=== PATIENT | female | born 1940 | race Caucasian/White ===

== ENCOUNTER 2020-04-01 14:18 | Inpatient (IN) | payer MEDICARE, SELFPAY ==
[2020-04-01] VITALS (26 sets, daily range): BP systolic 182–227; BP diastolic 56–79; PULSE 87–101; RESP 12–23; TEMP 36.2–37; O2SAT 93–99; BMI 23.4
--- NOTE | ~2020-04-01 | XR_ITS ---
EXAMINATION: XR hip LT 2V w AP pelvis DATE: 04/01/2020 14:57 INDICATION: Left hip pain. Fall. TECHNIQUE: An anteroposterior view pelvis and 2 views of left hip were obtained. COMPARISON: None. FINDINGS: Bone alignment is normal. There is a subcapital fracture of left femoral neck in near-anato chuy alignment. There is enlargement of the femoral necks, and there is an exostosis of medial aspect of subtrochanteric region of right femur. 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 Th ere is mild osteoarthritis of right hip. There is mild lumbar spondylosis. A calcification overlying the pelvis is likely a uterine fibroid. IMPRESSION: 1. Subcapital fracture of left femoral neck. 2. Mild right hip osteoarthritis. 3. Multiple hereditary exostoses. Reviewed, dictated and finalized at location B.
--- NOTE | ~2020-04-01 | XR_ITS ---
XR surgery orthopedic 04/02/2020 10:27 Indication: Left hip pinning Procedure: 2 fluoroscopic views of the left hip. 35 seconds of fluoroscopy. Comparison: Left hip series dated 04/01/2020 Findings: There are 3 orthopedic screws transfixing the left femoral neck. There is enlargement of th e femoral neck. Mild osteoarthritis. Left femoral subcapital fracture in anatomic alignment. Impression: 1: Status post internal fixation of left femoral subcapital fracture with 3 orthopedic screws. Reviewed, dictated and finalized at location A. Impression: 1: Status post internal fixation of left femoral subcapital fracture with 3 ort hopedic screws.
--- NOTE | ~2020-04-01 | CT_ITS ---
EXAMINATION: CT brain [facility] EXAM DATE: 04/01/2020 14:46 INDICATION: Fall, head injury. TECHNIQUE: Spiral CT of the head was performed without contrast. Axial, coronal and sagittal images were reviewed. The dose-length product (DLP) for this examination was 605.33 mGy-cm. The exposure w as tailored according to patient size, and iterative reconstruction (ASIR) was used as additional dos e reduction technique. There is no prior study for comparison. FINDINGS: There is no acute intraparenchymal hemorrhage. No evidence of intraparenchymal brain mass lesion. No evidence of acute infarction. Please note that initial head CT has limited sensitivity f or small or acute infarctions. There is mild periventricular and subcortical hypodensity, nonspecific but probably related to small vessel ischemic disease. There is moderate prominence of the sulci a nd ventricles related to cerebral atrophy. There is intracranial carotid arteriosclerosis. There a re no extra-axial collections. There is no mass effect or midline shift. Patient has had bilateral ocular lens surgery. Soft tissue is unremarkable. The visualized sinuses and mastoid air cells are well aerated. IMPRESSION: 1. No acute intracranial findings. 2. Chronic age related findings. Reviewed, dictated and finalized at location G.
--- NOTE | 2020-04-01 14:27 | ECG_ITS ---
Measurements Intervals [place] Rate: 94 P: 45 [place]: 178 QRS: -19 QRSD: 71 T: 58 QT: 359 QTc: 451 Interpretive Statements SINUS RHYTHM POSSIBLE LEFT ATRIAL ENLARGEMENT CANNOT RULE OUT SEPTAL INFARCT, AGE INDETERMINATE BORDERLINE ST ABNORMALITY- HIGH LATERAL LEADS ABNORMAL ECG Electronically Signed On 04-01-2020 17:24:36 CDT by Davidson Collazo D.O.
[2020-04-01 14:45] LABS: Basophils Percent Auto 0.4 % (0.2-1.2); Eosinophils Absolute Auto 0.1 K/mm3 (0-0.3); Eosinophils Percent Auto 1.8 % (0-4.4); Hematocrit 31.3 % (37.0-47.0); Hemoglobin 10.2 g/dL (12.0-15.0); Immature Granulocyte Absolute 0.02 K/mm3 (0.00-0.031); Immature Granulocyte Percent A 0.4 % (0-0.5); Lymphocytes Absolute Auto 0.92 K/mm3 (0.9-3.2); Lymphocytes Percent Auto 18.7 % (18.3-44.2); Mean Corpuscular HGB Conc 32.6 g/dl (32-36); Mean Corpuscular Hemoglobin 29.7 pg (26-34); Mean Platelet Volume 11.9 fl (7.4-10.4); Monocytes Absolute Auto 0.3 K/mm3 (0.1-0.6); Monocytes Percent Auto 6.5 % (2.6-8.5); Neutrophils Absolute Auto 3.6 K/mm3 (1.3-6.7); Neutrophils Percent Auto 72.2 % (45.5-73.1); Platelet Count Result 86 k/mm3 (150-375); Red Blood Count 3.44 M/mm3 (4.2-5.4); Red Cell Distribution Width 14.6 % (11.5-14.5); White Blood Count 4.9 K/mm3 (4.5-10.0)
[2020-04-01 14:56] LABS: Alanine Aminotransferase 27 U/L (4-35); Albumin Level 2.9 g/dL (3.5-5.1); Alkaline Phosphatase 125 U/L (38-126); Anion Gap 5 mmol/L (8-16); Aspartate Amino Transferase 52 U/L (14-36); Bilirubin,Total 0.5 mg/dL (0.2-1.3); Blood Urea Nitrogen 26 mg/dL (7-17); Calcium 8.5 mg/dL (8.4-10.2); Carbon Dioxide 24 mmol/L (22-30); Chloride 111 mmol/L (98-107); Estimated CRCL calculation 30 ml/min; Estimated Glomerular Filt Rate 48; Glucose 324 mg/dL (65-105); Potassium 4.2 mmol/L (3.4-5.0); Sodium 140 mmol/L (137-145)
[2020-04-01 14:57] LABS: INR 1.1; Prothrombin Time 13.6 Seconds (11.1-14.7)
--- NOTE | 2020-04-01 15:28 | ED.FALL ---
HPI - Fall General Chief Complaint: Fall Stated Complaint: fall - left leg/hip pain Time Seen by Provider: 04/01/20 14:27 Source: patient and EMS Mode of arrival: EMS Limitations: no limitations History of Present Illness HPI Narrative: 79-year-old with a history of hypertension, hyperlipidemia, diabetes was brought in from home with complaints of fall. Patient states that she was helping her son and moving, lost her balance and fell on her left hip. She also states that she might have hit her head but no loss of consciousness. She denies any chest pain or shortness of breath. Patient states that she is unable to bear weight on her left leg. MD complaint: fall Onset (ago): minute(s) (30) Fall from: standing Fall witnessed: yes, by family Place fall occurred: home Loss of consciousness: none Symptoms prior to fall: none Context: other (Lost her balance) Severity: severe Severity scale (1-10): 8 Quality: aching Associated symptoms (after fall): denies Related Data Home Medications Medication Instructions Recorded Confirmed amlodipine 2.5 mg PO DAILY 04/01/20 aspirin 81 mg PO DAILY 04/01/20 atorvastatin 10 mg PO DAILY 04/01/20 bacitracin 04/01/20 carboxymethylcellulose sodium drp 04/01/20 04/01/20 [Retaine CMC] diazepam 2 mg PO BID PRN 04/01/20 ergocalciferol (vitamin D2) 04/01/20 fluticasone propionate INHALATION 04/01/20 furosemide 20 mg BYMOUTH 04/01/20 gabapentin 300 mg PO BID 04/01/20 insulin detemir U-100 [Levemir unit SUBCUT 04/01/20 FlexTouch U-100 Insuln] losartan 50 mg PO DAILY 04/01/20 meclizine 25 mg PO BID PRN 04/01/20 metformin 850 mg PO TID 04/01/20 prochlorperazine maleate 04/01/20 sulfamethoxazole-trimethoprim 1 tablet PO Q12H 04/01/20 Allergies Allergy/AdvReac Type Severity Reaction Status Date / Time Penicillins Allergy Rash Verified 04/01/20 14:23 red dye Allergy Rash Verified 04/01/20 14:23 Review of Systems Review of Systems: All systems reviewed & are unremarkable except as noted in HPI and below Constitutional: Constitutional: Reports no additional constitutional complaints Eyes: Eyes: Reports no additional eye complaints ENT: Reports as per HPI Cardiovascular: Cardiovascular: Reports no additional cardiovascular complaints Respiratory: Respiratory: Reports no additional respiratory complaints Musculoskeletal: Musculoskeletal: Reports as per HPI Neurologic: Reports system reviewed and no additional complaints, except as documented Endocrine: Endocrine: Reports no additional endocrine complaints [facility] Social History Social History Gender identity (if verbalized by the patient): Female Exam Narrative: Exam Narrative: GENERAL: Well-appearing, thin and in no acute distress. HEAD: Normocephalic, atraumatic. EYES: PERRLA and EOMI. ENT: Nares clear. Mucous membranes moist. NECK: Supple. CHEST: Clear to auscultation. No respiratory distress. HEART: Regular rate and rhythm. No murmur heard. Normal peripheral pulses. ABDOMEN: Soft, nontender, nondistended, normal active bowel sounds. EXTREMITIES: pain and tenderness in the left hip SKIN: Warm, dry, no rash. NEURO: No focal deficits. Alert and oriented x3. PSYCH: Normal mood and affect. Course Course Emergency Course: Inform patient and the family about her lab work, x-ray findings. I discussed her case with Dr. rodriguez agreed to consult the patient recommended to admit to the hospitalist. Vital Signs Vital signs: Vital Signs Pulse Rate 95 04/01/20 14:25 Respiratory Rate 19 04/01/20 14:25 Blood Pressure 204/61 H 04/01/20 14:25 Pulse Oximetry 96 04/01/20 14:25 Pulse Rate 101 H 04/01/20 15:00 Respiratory Rate 18 04/01/20 15:00 Blood Pressure 208/65 H 04/01/20 14:31 Pulse Oximetry 96 04/01/20 15:00 MDM - Fall Lab Data Result diagrams: 04/01/20 14:39 04/01/20 14:39 Labs: Lab Results
[2020-04-01] MEDS: HYDROmorphone HCL INJ (*CRX) 1 MG/ML SYR 0.5 MG IV PUSH (16:05)
--- NOTE | 2020-04-01 16:10 | PC.NURSE ---
Patient refusing rivera catheter at this time.
[2020-04-01] MEDS: ONDANSETRON INJ 4 MG/2 ML VIAL IV PUSH ×2 (16:14→22:39)
[2020-04-01] MEDS: SODIUM CHLORIDE 0.9% IV 1,000 ML 75 ML IV CONT (16:15)
--- NOTE | 2020-04-01 16:31 | PM.IMHP ---
H&P: HPI History of Present Illness Date/Time: 04/01/20 16:31 Chief complaint: left hip fracture Narrative: Gail Matute is a 79 year old female Past medical history hyperlipidemia, type 2 diabetes, hypertension, from pulmonary fibrosis diagnosis 1990, who presents to ED with left hip pain. she was working on home improvement with her and tripped over something. She did not have any dizziness, syncope, loss of consciousness, vision changes prior to the fall. She has no history of falls. for diabetes she is on insulin q.i.d.. She states she has been on and off prednisone for her pulmonary fibrosis, no recent prednisone use. She denies fever, chills, nausea, vomiting, diarrhea, syncope, lightheadedness, dizziness. In the ED: Patient was found to have a closed left hip fracture. Patient admitted for left hip fracture, plan for surgery tomorrow morning at 8:30 a.m. Patient admits to medical floor For further management. Review of Systems Review of Systems: Narrative: Constitutional: No Fever, No Chills, No Night Sweats, No Fatigue, No Malaise ENT/Mouth: No Hearing Changes, No Ear Pain, No Nasal Congestion, No Sinus Pain, No Hoarseness, No sore throat, No Rhinorrhea, No Swallowing Difficulty Eyes: No Eye Pain, No Redness, No Vision Changes Cardiovascular: No Chest Pain, No Palpitations, No Dyspnea on Exertion, No Orthopnea, No Claudication, No Edema Respiratory: No Cough, No Sputum, No Wheezing, No Shortness of Breath Gastrointestinal: No Nausea, No Vomiting, No Diarrhea, No Constipation, No Abdominal Pain, No Heartburn, No Hematochezia, No Melena Genitourinary: No Dysuria, No Urinary Frequency, No Hematuria, No Urinary Incontinence, No Urgency Musculoskeletal: No Arthralgias, No Myalgias, endorses left hip pain Skin: No Skin Lesions, No Pruritis, No Hair Changes Neuro: No Weakness, No Numbness, No Paresthesias, No Loss of Consciousness, No Syncope, No Dizziness, No Headache Psych: No Anxiety/Panic, No Depression, No Insomnia Heme: No Bruising, No Bleeding Lymph: No Adenopathy Endocrine: No Polyuria, No Polydipsia, No Temperature Intolerance [facility], [facility] Past Medical History Medical History (Updated 04/01/20 @ 18:47 by Farhana Rudd DO) Closed hip fracture COPD (chronic obstructive pulmonary disease) Diabetes mellitus Hyperlipidemia Hypertension Normal colonoscopy 06/2019 Pulmonary fibrosis diagnosed 1990 Surgical History Surgical History (Updated 04/01/20 @ 18:47 by Farhana Rudd DO) History of lung biopsy Family History Family History (Updated 04/01/20 @ 18:47 by Farhana Rudd DO) Father , from old age, gangrene surgery complication No problems noted. Mother , lymph cancer No problems noted. Social History Social History (Updated 04/01/20 @ 18:48 by Farhana Rudd DO) Social History: Very active, still drives, independent Smoking status: Never smoker Alcohol intake: never Substance use: never Additional living arrangements comments: Lives with Gender identity (if verbalized by the patient): Female Spiritual care concerns: No Meds Home Medications and Allergies Home Medications Medication Instructions Recorded Confirmed Type amlodipine 2.5 mg PO DAILY 04/01/20 History aspirin 81 mg PO DAILY 04/01/20 History atorvastatin 10 mg PO DAILY 04/01/20 History bacitracin 04/01/20 History carboxymethylcellulose sodium drp 04/01/20 04/01/20 History [Retaine CMC] diazepam 2 mg PO BID PRN 04/01/20 History ergocalciferol (vitamin D2) 04/01/20 History fluticasone propionate INHALATION 04/01/20 History furosemide 20 mg BYMOUTH 04/01/20 History gabapentin 300 mg PO BID 04/01/20 History insulin detemir U-100 [Levemir unit SUBCUT 04/01/20 History FlexTouch U-100 Insuln] losartan 50 mg PO DAILY 04/01/20 History meclizine 25 mg PO BID PRN 04/01/20 History metformin 850 mg PO TID 04/01/20 Hi
--- NOTE | 2020-04-01 16:51 | WPDANESEPP ---
Anes - Eval Pre Procedure Procedure: Operation Date: 04/02/20 08:30 Proposed Procedures p Left Hip Pinning(Left) - Timmy Garcia MD Date/Time: 04/01/20 16:51 Pre Op Diagnosis: left hip fracture Patient Data Age: 79 Gender: F Height: 5 ft 2 in Weight: 54.5 kg Last Vital Signs Temp 98.0 F 04/01/20 15:52 Pulse 93 04/01/20 16:30 Resp 19 04/01/20 16:30 BP 219/63 H 04/01/20 16:16 Pulse Ox 94 04/01/20 16:30 Allergies Allergy/AdvReac Type Severity Reaction Status Date / Time Penicillins Allergy Rash Verified 04/01/20 14:23 red dye Allergy Rash Verified 04/01/20 14:23 Home Medications Medication Instructions Recorded Confirmed Type amlodipine 2.5 mg PO DAILY 04/01/20 History aspirin 81 mg PO DAILY 04/01/20 History atorvastatin 10 mg PO DAILY 04/01/20 History bacitracin 04/01/20 History carboxymethylcellulose sodium drp 04/01/20 04/01/20 History [Retaine CMC] diazepam 2 mg PO BID PRN 04/01/20 History ergocalciferol (vitamin D2) 04/01/20 History fluticasone propionate INHALATION 04/01/20 History furosemide 20 mg BYMOUTH 04/01/20 History gabapentin 300 mg PO BID 04/01/20 History insulin detemir U-100 [Levemir unit SUBCUT 04/01/20 History FlexTouch U-100 Insuln] losartan 50 mg PO DAILY 04/01/20 History meclizine 25 mg PO BID PRN 04/01/20 History metformin 850 mg PO TID 04/01/20 History prochlorperazine maleate 04/01/20 History sulfamethoxazole-trimethoprim 1 tablet PO Q12H 04/01/20 History Laboratory Tests 04/01/20 04/01/20 04/01/20 14:39 14:39 14:39 WBC 4.9 K/mm3 K/mm3 (4.5-10.0) RBC 3.44 M/mm3 L M/mm3 (4.2-5.4) Hgb 10.2 g/dL L g/dL (12.0-15.0) Hct 31.3 % L % (37.0-47.0) MCV 91.0 fl fl (80-100) MCH 29.7 pg pg (26-34) MCHC 32.6 g/dl g/dl (32-36) RDW 14.6 % H % (11.5-14.5) Plt Count 86 k/mm3 L k/mm3 (150-375) MPV 11.9 fl H fl (7.4-10.4) Immature Gran % (Auto) 0.4 % % (0-0.5) Neut % (Auto) 72.2 % % (45.5-73.1) Lymph % (Auto) 18.7 % % (18.3-44.2) Lucas % (Auto) 6.5 % % (2.6-8.5) Eos % (Auto) 1.8 % % (0-4.4) Baso % (Auto) 0.4 % % (0.2-1.2) Lymph # (Auto) 0.92 K/mm3 K/mm3 (0.9-3.2) Lucas # (Auto) 0.3 K/mm3 K/mm3 (0.1-0.6) Eos # (Auto) 0.1 K/mm3 K/mm3 (0-0.3) Baso # (Auto) 0.0 K/mm3 K/mm3 (0.0-0.1) Abs Immat Gran (auto) 0.02 K/mm3 K/mm3 (0.00-0.031) Absolute Neuts (auto) 3.6 K/mm3 K/mm3 (1.3-6.7) Absolute Nucleated RBC 0.0 K/mm3 K/mm3 (0.0-0.012) Nucleated RBC % 0.0 % % (0.0-0.2) PT 13.6 Seconds Seconds (11.1-14.7) INR 1.1 Sodium 140 mmol/L mmol/L (137-145) Potassium 4.2 mmol/L mmol/L (3.4-5.0) Chloride 111 mmol/L H mmol/L (98-107) Carbon Dioxide 24 mmol/L mmol/L (22-30) Anion Gap 5 mmol/L L mmol/L (8-16) BUN 26 mg/dL H mg/dL (7-17) Creatinine 1.10 mg/dL H mg/dL (0.7-1.0) Estim Creat Clear Calc 30 ml/min ml/min Estimated GFR 48 L (59 - ) Glucose 324 mg/dL H mg/dL (65-105) Calcium 8.5 mg/dL mg/dL (8.4-10.2) Total Bilirubin 0.5 mg/dL mg/dL (0.2-1.3) AST 52 U/L H U/L (14-36) ALT 27 U/L U/L (4-35) Alkaline Phosphatase 125 U/L U/L (38-126) Total Protein 6.0 g/dL L g/dL (6.3-8.2) Albumin 2.9 g/dL L g/dL (3.5-5.1) Patient hx anesthesia problems: none Family hx anesthesia problems: none [facility] Past Medical History Medical History (Updated 04/01/20 @ 16:52 by Dom Mcgregor, SANTINO) Closed hip fracture COPD (chronic obstructive pulmonary disease) Diabetes mellitus Hyperlipidemia Hypertension Social History Social History (Reviewed 04/01/20 @ 16:54 by Dom Diamond
[2020-04-01] MEDS: HYDROcodone/acetaminophen (*CRX) 5-325 MG TABLET 1 TAB PO ×2 (18:10→22:39)
--- NOTE | 2020-04-01 18:18 | ADMGEN ---
This patient, Gail Matute, was admitted to 2 Medical Room 243-. Patient/family oriented to hospital policies and general routines including ID bracelet, bed and alarms, visiting hours, pain management, procedures, bathroom and other care routines, personal items, smoking policy, room service/diet, and visiting hours. Valuables list has been completed. Information on how to activate the Rapid Response Team has been discussed. Patient/Family are encouraged to report perceived risks to care and to ask questions if they do not understand what they are told or what they should do.
[2020-04-01 18:26] LABS: Magnesium 1.8 mg/dL (1.6-2.3)
[2020-04-01 18:32] LABS: Glucose Point of Care 246 (65-105)
[2020-04-01] MEDS: INSULIN ASPART (*BKC) 100 UNITS/ML SUB-Q (18:33)
[2020-04-01] MEDS: HYDROmorphone HCL INJ (*CRX) 1 MG/ML SYR IV PUSH (21:00)
[2020-04-01 23:16] LABS: Glucose Point of Care 269 (65-105)
[2020-04-02] VITALS (16 sets, daily range): BP systolic 138–197; BP diastolic 45–71; PULSE 85–100; RESP 12–22; TEMP 36.8–38.1; O2SAT 92–100
[2020-04-02 06:02] LABS: Basophils Percent Auto 0.2 % (0.2-1.2); Eosinophils Absolute Auto 0.2 K/mm3 (0-0.3); Eosinophils Percent Auto 2.6 % (0-4.4); Hematocrit 32.3 % (37.0-47.0); Hemoglobin 10.4 g/dL (12.0-15.0); Immature Granulocyte Absolute 0.01 K/mm3 (0.00-0.031); Immature Granulocyte Percent A 0.2 % (0-0.5); Lymphocytes Absolute Auto 1.48 K/mm3 (0.9-3.2); Lymphocytes Percent Auto 25.3 % (18.3-44.2); Mean Corpuscular HGB Conc 32.2 g/dl (32-36); Mean Corpuscular Hemoglobin 29.9 pg (26-34); Mean Corpuscular Volume 92.8 fl (80-100); Mean Platelet Volume 12.5 fl (7.4-10.4); Monocytes Absolute Auto 0.5 K/mm3 (0.1-0.6); Monocytes Percent Auto 8.9 % (2.6-8.5); Neutrophils Absolute Auto 3.7 K/mm3 (1.3-6.7); Neutrophils Percent Auto 62.8 % (45.5-73.1); Platelet Count Result 99 k/mm3 (150-375); Red Blood Count 3.48 M/mm3 (4.2-5.4); Red Cell Distribution Width 14.7 % (11.5-14.5); White Blood Count 5.9 K/mm3 (4.5-10.0)
[2020-04-02 06:07] LABS: Glucose Point of Care 200 (65-105)
[2020-04-02] MEDS: hydrALAZINE HCL 20 MG/ML VIAL 10 MG IV PUSH (06:10)
[2020-04-02 06:26] LABS: Anion Gap 4 mmol/L (8-16); Blood Urea Nitrogen 28 mg/dL (7-17); Calcium 8.5 mg/dL (8.4-10.2); Carbon Dioxide 25 mmol/L (22-30); Chloride 108 mmol/L (98-107); Estimated CRCL calculation 30 ml/min; Estimated Glomerular Filt Rate 48; Glucose 217 mg/dL (65-105); Sodium 137 mmol/L (137-145)
[2020-04-02 06:27] LABS: Transferrin 226 mg/dL (206-381)
--- NOTE | 2020-04-02 07:44 | PM.CNOR ---
Assessment and Plan Assessment and plan (1) Closed hip fracture: Qualifiers: Encounter type: initial encounter Laterality: left Qualified Code(s): S72.002A - Fracture of unspecified part of neck of left femur, initial encounter for closed fracture Code(s): S72.009A - Fracture of unspecified part of neck of unspecified femur, initial encounter for closed fracture Status: Acute Assessment and Plan: 79-year-old female with an acute left femoral neck fracture. This is in the setting of an abnormal proximal femoral neck secondary to multiple hereditary exostoses. I discussed with her the role of surgical stabilization.Risks and potential complications were discussed in detail and questions answered. Plan on proceeding today. I would anticipate short stay in the acute rehab unit before being discharged home possibly with home health nursing and physical therapy. Thank you for the consultation. History of Present Illness HPI Consult date: 04/02/20 Consult reason: fracture Chief complaint: left hip fracture Narrative: 79-year-old female who fell yesterday landing on her left side suffering a left femoral neck fracture. No other injuries with this occurrence. She recalled all events surrounding this there was no loss of consciousness. No chest pain associated with this. Known history of multiple hereditary exostoses diagnosed about 35 years ago. Review of Systems Constitutional: Constitutional: Reports no additional constitutional complaints, Denies excessive sweating and Denies fatigue Eyes: Eyes: Reports no additional eye complaints ENT: Reports system reviewed and no additional complaints, except as documented Cardiovascular: Cardiovascular: Denies chest pain at rest and Denies dyspnea Respiratory: Respiratory: Reports no additional respiratory complaints and Denies dyspnea Gastrointestinal: Gastrointestinal: Reports no additional gastrointestinal complaints Musculoskeletal: Musculoskeletal: Reports as per HPI Neurologic: Reports as per HPI Hematologic/Lymphatic: Hematologic/Lymphatic: Denies easy bleeding and Denies easy bruising PMFSH Past Medical History Medical History (Updated 04/02/20 @ 07:46 by Timmy Garcia MD) COPD (chronic obstructive pulmonary disease) Diabetes mellitus Hyperlipidemia Hypertension Multiple hereditary exostoses Normal colonoscopy 06/2019 Pulmonary fibrosis diagnosed 1990 Surgical History Surgical History (Updated 04/02/20 @ 07:46 by Timmy Garcia MD) Closed hip fracture History of lung biopsy Family History Family History Father , from old age, gangrene surgery complication No problems noted. Mother , lymph cancer No problems noted. Social History Social History Social History: Very active, still drives, independent Smoking status: Never smoker Alcohol intake: never Substance use: never Additional living arrangements comments: Lives with Gender identity (if verbalized by the patient): Female Spiritual care concerns: No Meds Home Medications and Allergies Home Medications Medication Instructions Recorded Confirmed Type amlodipine 2.5 mg PO HS 04/01/20 04/01/20 History aspirin 81 mg PO DAILY 04/01/20 04/01/20 History atorvastatin 10 mg PO HS 04/01/20 04/01/20 History bacitracin 04/01/20 History carboxymethylcellulose sodium drp 04/01/20 04/01/20 History [Retaine CMC] diazepam 2 mg PO BID PRN 04/01/20 04/01/20 History ergocalciferol (vitamin D2) 50,000 unit PO MONTHLY 04/01/20 04/01/20 History fluticasone propionate 250 mcg INHALATION BID 04/01/20 04/01/20 History furosemide 20 mg PO DAILY 04/01/20 04/01/20 History gabapentin 300 mg PO BID 04/01/20 04/01/20 History insulin detemir U-100 [Levemir 10 unit SUBCUT HS 04/01/20 04/01/20 History FlexTouch U-100 In
--- NOTE | 2020-04-02 08:58 | PM.IMPN ---
Progress Note: A&P Assessment and Plan (1) Closed hip fracture: Qualifiers: Encounter type: subsequent encounter Laterality: left Fracture healing: with routine healing Qualified Code(s): S72.002D - Fracture of unspecified part of neck of left femur, subsequent encounter for closed fracture with routine healing Code(s): S72.009A - Fracture of unspecified part of neck of unspecified femur, initial encounter for closed fracture Status: Acute Assessment and Plan: medically stable for left hip ORIF today (2) Pulmonary fibrosis: Code(s): J84.10 - Pulmonary fibrosis, unspecified Status: Inactive Assessment and Plan: by history she has been doing well for several years her lack of progression renders the diagnosis dubious monitor per postoperatively for respiratory issues and encourage incentive spirometry and early mobilization of possible (3) Hypertension: Qualifiers: Hypertension type: essential hypertension Qualified Code(s): I10 - Essential (primary) hypertension Code(s): I10 - Essential (primary) hypertension Status: Acute Assessment and Plan: with the exception of furosemide, continue home regimen and monitor perioperatively (4) Diabetes mellitus: Qualifiers: Diabetes mellitus type: type 2 Diabetes mellitus nursing home insulin use: with nursing home use Diabetes mellitus complication status: with kidney complications Chronic kidney disease stage: stage 3 (moderate) Diabetes mellitus complication detail: with chronic kidney disease Chronic kidney disease stage 3 subtype: stage 3a (GFR 45-59) Qualified Code(s): E11.21 - Type 2 diabetes mellitus with diabetic nephropathy; N18.31 - Chronic kidney disease, stage 3a; Z79.4 - assisted (current) use of insulin Code(s): E11.9 - Type 2 diabetes mellitus without complications Status: Acute Assessment and Plan: hold metformin perioperative sliding scale aspartate insulin resume basal insulin when diet tolerated (5) Anemia due to acute blood loss: Code(s): D62 - Acute posthemorrhagic anemia Status: Acute Assessment and Plan: due to acute left hip fracture monitor hemoglobin hematocrit postoperatively Subjective Date/time seen: 04/02/20 08:58 Interval history: 04/02. Hospitalized 04/01 after fall at home of son and unable to walk. was told she had a fracture right hip and needed surgery 04/02. Quite uncomfortable through the night as she refused to receive any analgesics. History of pulmonary fibrosis. On and off prednisone several years. None for several months. Took vitamin-D in the past but unaware of any other preventive medication for osteoporosis. Does not recall bone density evaluation. Denied chest pain. Denied shortness of breath at rest. Chronic dyspnea on exertion stable. Denied edema. No palpitations syncope presyncope abdominal pain GI or complaints or abnormal bleeding. No weakness or numbness. No head trauma. Review of Systems Review of Systems: All systems reviewed & are unremarkable except as noted in HPI and below Exam Narrative: Exam Narrative: HEENT: EOMI, PERRL, sclerae nonicteric, pharyngeal mucosa pink and intact NECK: No JVD, adenopathy, or thyromegaly CHEST: Bilateral lower lobe fine crackles. Normal effort. HEART: NL S1/S2, regular, no murmur ABDOMEN: BS+, soft, nontender, no mass, no bruits EXTREMITIES: No cyanosis, edema, or clubbing NEUROLOGIC: CN intact and symmetric to inspection. MUSCULOSKELETAL: Tone and strength symmetric to dorsiflexion plantar flexion and supplies packer PSYCH: Alert. Oriented to person, place, and time. Objective Data Vital Signs Vital Signs: Vital Signs - 24 hr 04/01/20 14:25 04/01/20 14:30 04/01/20 14:31 Temperature Pulse Rate 95 96 94 Respiratory Rate 19 17 15 Blood Pressure 204/61 H 208/65 H Pulse Oximetry 96 96 95 04/01/20 14:32 04/01/20 14:
--- NOTE | 2020-04-02 09:00 | PC.NURSE ---
To OR per hospital bed, IV intact and locked. Report given to EVERT Villarreal.
--- NOTE | 2020-04-02 09:08 | WPDANESEFPP ---
Anes - Eval Final PreProcedure Day of Procedure 04/02/20 09:08 Patient weight: normal Heart: regular rate and rhythm and murmur Lungs: clear to auscultation and normal air movement Airway: Mallampati scale class II Neurological: alert and oriented Last oral intake: >/= 8 hours ASA classification: III Emergent: no Anesthetic plan: proceed Anesthesia type and monitoring: general LMA and standard monitoring Other findings: Informed Consent: The patient's anesthetic plan and its attendant risks and benefits were discussed with the patient/family/POA. Questions were solicited and answers provided to the satisfaction of the patient/family/POA.
[2020-04-02] MEDS: CLINDAMYCIN 600 MG in DEXTROSE 5% IN WATER 50 ML 100 MG IVPB (09:38)
[2020-04-02] MEDS: BUPIVACAINE/EPINEPHRINE 0.25% 50 ML VIAL 20 ML INFILTRATE (10:16)
[2020-04-02] MEDS: LACTATED RINGERS 1,000 ML 30 ML IV CONT (10:35)
--- NOTE | 2020-04-02 10:46 | P.OP_ITS ---
Procedure Note - Detailed Date of procedure: 04/02/20 Pre-op diagnosis: left hip fracture Post-op diagnosis: same Procedure performed: Left hip pinning in situ Description of procedure: The patient was identified and proper site identified. She was taken to the operating room after general anesthetic administration and intubation, she was transferred over to the fracture table position her supine in the usual manner for a left hip procedure. The position of the fracture was assessed fluoroscopically and noted to be in excellent position. The left hip and thigh was prepped and draped in the usual sterile fashion. 10 cc of 0.25% Marcaine and epinephrine solution was injected into the subcutaneous tissue in the area of the incision at the start of the procedure and additional 10 at the end. A short incision was made and subcutaneous tissue sharply dissected down to the ITB band which was divided in line with the incision. Using a targeting device three cannulated screws were placed under fluoroscopic control into the femoral neck and head verifying their positions fluoroscopically. 36.5 cannulated screws were placed over these pins and then the pins removed. Overall position of the hardware was assessed fluoroscopically on the AP and lateral views and noted to be satisfactory. The wound was irrigated with sterile antibiotic solution. The deep fascia was reapproximated with 0 Vicryl suture as was the deeper layers of the subcu. Skin edges reapproximated with three 0 Monocryl and jenny. Sterile dressing was applied. She tolerated procedure well, was awakened, extubated , transferred to the OR table and then taken recovery area in stable condition. she received perioperative antibiotics. Estimated blood loss was negligible. Anesthesia: GLMA Surgeon: Timmy Garcia MD Cook Helper Meat: Raven Estimated blood loss (mL): 10 Drains: No Packing: No Pathology: none sent Complications: No immediate complications Condition: stable Disposition: PACU
[2020-04-02 10:48] LABS: Glucose Point of Care 140 (65-105)
[2020-04-02] MEDS: fentaNYL CITRATE INJ (*CRX) 100 MCG/2 ML VIAL 25 MCG IV PUSH ×2 (10:54→11:08)
[2020-04-02 10:55] LABS: Iron 110 ug/dL (37-170)
[2020-04-02] MEDS: LABETALOL HCL INJ 100 MG/20 ML VIAL IV PUSH (11:03)
[2020-04-02 11:10] LABS: Percent Iron Saturation 31 % (20-50)
--- NOTE | 2020-04-02 11:50 | PC.NURSE ---
Returned from OR per hospital bed. Report received from EVERT Villarreal.
[2020-04-02] MEDS: SODIUM CHLORIDE 0.9% IV 1,000 ML 125 ML IV CONT (12:20)
[2020-04-02 12:33] LABS: Glucose Point of Care 170 (65-105)
[2020-04-02] MEDS: CLINDAMYCIN 600 MG/NS 50 ML 600 MG/50 ML PIGGYBACK 100 MG IVPB ×2 (13:23→21:19)
[2020-04-02] MEDS: ACETAMINOPHEN 500 MG TABLET 1000 MG BY MOUTH ×2 (13:23→21:19)
[2020-04-02] MEDS: oxyCODONE HCL (*CRX) 2.5 MG TAB IR PO ×2 (14:54→20:14)
[2020-04-02 17:13] LABS: Glucose Point of Care 228 (65-105)
[2020-04-02] MEDS: INSULIN ASPART (*BKC) 100 UNITS/ML SUB-Q (17:52)
[2020-04-02] MEDS: ASPIRIN 325 MG ENTERIC TABLET PO (20:14)
[2020-04-02 21:27] LABS: Glucose Point of Care 284 (65-105)
[2020-04-03 02:00] VITALS: BP 169/50; PULSE 100; RESP 20; TEMP 36.7; O2SAT 92
[2020-04-03] MEDS: oxyCODONE HCL (*CRX) 2.5 MG TAB IR PO ×3 (02:48→14:04)
[2020-04-03] MEDS: ACETAMINOPHEN 500 MG TABLET 1000 MG BY MOUTH ×3 (05:44→22:09)
[2020-04-03 06:00] VITALS: BP 151/51; PULSE 97; RESP 18; TEMP 36.7; O2SAT 92
[2020-04-03 06:34] LABS: Basophils Percent Auto 0.2 % (0.2-1.2); Eosinophils Absolute Auto 0.2 K/mm3 (0-0.3); Eosinophils Percent Auto 3.4 % (0-4.4); Hematocrit 28.3 % (37.0-47.0); Hemoglobin 9.1 g/dL (12.0-15.0); Immature Granulocyte Absolute 0.02 K/mm3 (0.00-0.031); Immature Granulocyte Percent A 0.4 % (0-0.5); Lymphocytes Absolute Auto 1.18 K/mm3 (0.9-3.2); Lymphocytes Percent Auto 22.4 % (18.3-44.2); Mean Corpuscular HGB Conc 32.2 g/dl (32-36); Mean Corpuscular Hemoglobin 29.4 pg (26-34); Mean Corpuscular Volume 91.6 fl (80-100); Mean Platelet Volume 12.2 fl (7.4-10.4); Monocytes Absolute Auto 0.5 K/mm3 (0.1-0.6); Monocytes Percent Auto 9.5 % (2.6-8.5); Neutrophils Absolute Auto 3.4 K/mm3 (1.3-6.7); Neutrophils Percent Auto 64.1 % (45.5-73.1); Platelet Count Result 74 k/mm3 (150-375); Red Blood Count 3.09 M/mm3 (4.2-5.4); Red Cell Distribution Width 14.6 % (11.5-14.5); White Blood Count 5.3 K/mm3 (4.5-10.0)
[2020-04-03 06:52] LABS: Anion Gap 2 mmol/L (8-16); Blood Urea Nitrogen 28 mg/dL (7-17); Calcium 7.8 mg/dL (8.4-10.2); Carbon Dioxide 24 mmol/L (22-30); Chloride 109 mmol/L (98-107); Estimated CRCL calculation 22 ml/min; Estimated Glomerular Filt Rate 34; Glucose 234 mg/dL (65-105); Potassium 3.9 mmol/L (3.4-5.0); Sodium 135 mmol/L (137-145)
--- NOTE | 2020-04-03 07:27 | PM.PNORT ---
Subjective Subjective Date/Time Seen: 04/03/20 07:27 Objective Data Vital Signs Vital Signs: Vital Signs - 24 hr 04/02/20 10:35 04/02/20 10:50 04/02/20 11:00 Temperature 98.2 F Pulse Rate 100 99 98 Respiratory Rate 22 H 12 12 Blood Pressure 194/71 H 191/59 H 197/56 H Pulse Oximetry 100 100 100 04/02/20 11:03 04/02/20 11:15 04/02/20 11:30 Temperature Pulse Rate 98 88 90 Respiratory Rate 12 12 Blood Pressure 158/47 H 154/48 H Pulse Oximetry 99 99 04/02/20 11:40 04/02/20 11:55 04/02/20 12:10 Temperature 100.0 F H 100.5 F H Pulse Rate 90 92 87 Respiratory Rate 12 20 20 Blood Pressure 156/45 H 154/47 H 147/46 H Pulse Oximetry 100 100 100 04/02/20 12:25 04/02/20 12:55 04/02/20 14:00 Temperature 98.5 F 99.2 F 100.0 F H Pulse Rate 87 85 91 Respiratory Rate 20 20 18 Blood Pressure 139/47 L 144/47 H 138/48 L Pulse Oximetry 100 100 100 04/02/20 18:00 04/02/20 22:00 04/03/20 02:00 Temperature 98.6 F 98.5 F 98.1 F Pulse Rate 85 92 100 Respiratory Rate 18 22 H 20 Blood Pressure 149/47 H 184/56 H 169/50 H Pulse Oximetry 94 92 92 04/03/20 06:00 Temperature 98.1 F Pulse Rate 97 Respiratory Rate 18 Blood Pressure 151/51 H Pulse Oximetry 92 Intake/Output Intake/Output: Intake & Output 03/31/20 04/01/20 04/02/20 04/03/20 23:59 23:59 23:59 23:59 Intake Total 2524 / 2524 750 / 750 Output Total 100 / 100 290 / 290 100 / 100 Balance -100 / -100 2234 / 2234 650 / 650 Meds/Results Medications: Active Medications Generic Name Dose Route Start Last Admin Trade Name Freq PRN Reason Stop Dose Admin Acetaminophen 1,000 mg 04/02/20 14:00 04/03/20 05:44 Acetaminophen 500 Mg Tablet BY MOUTH 1,000 mg Q8HR BEATA Administration Al Hydrox/Mg Hydrox/Simethicone 30 ml 04/02/20 11:41 Mag Hydrox/Al Hydrox/Simeth 30 Ml Udc PO Q6H PRN Indigestion Aspirin 325 mg 04/02/20 21:00 04/02/20 20:14 Aspirin 325 Mg Enteric Tablet PO 325 mg Q12HR BEATA Administration Diazepam 2 mg 04/02/20 11:41 Diazepam (*Crx) 2 Mg Tablet PO BID PRN Anxiety Ergocalciferol 50,000 unit 04/24/20 09:00 Ergocalciferol 50,000 Unit Capsule PO MONTHLY@0900 BEATA Furosemide 20 mg 04/03/20 09:00 Furosemide 20 Mg Tablet PO DAILY [facility] Insulin Aspart 2 - 5 units 04/01/20 17:00 04/02/20 17:52 Insulin Aspart (*Bkc) 100 Units/Ml SUB-Q 2 units TIDWM BEATA Administration Protocol Naloxone HCl 0.1 mg 04/02/20 11:41 Naloxone Hcl 0.4 Mg/Ml Vial IV PUSH Q2M PRN Opiate Reversal Ondansetron HCl 4 mg 04/02/20 11:41 Ondansetron Inj 4 Mg/2 Ml Vial IV PUSH 04/04/20 11:42 Q4H PRN Nausea And Vomiting Oxycodone HCl 2.5 mg 04/02/20 11:41 04/03/20 02:48 Oxycodone Hcl (*Crx) 2.5 Mg Tab Ir PO 04/04/20 11:42 2.5 mg Q4H PRN Administration Pain Rated 4-6 Radiology Results: ITS Impressions Head CT 04/01/20 14:56 IMPRESSION: 1. No acute intracranial findings. 2. Chronic age related findings. Hip/Pelvis X-Ray 04/01/20 15:01 IMPRESSION: 1. Subcapital fracture of left femoral neck. 2. Mild right hip osteoarthritis. 3. Multiple hereditary exostoses. Intraoperative X-Ray 04/02/20 10:41 Impression: 1: Status post internal fixation of left femoral subcapital fracture with 3 orthopedic screws. Labs Labs: Laboratory Results - last 24 hr 04/02/20 04/02/20 04/02/20 05:00 10:46 11:59 WBC RBC Hgb Hct MCV MCH MCHC RDW Plt Count MPV Immature Gran % (Auto) Neut % (Auto) Lymph % (Auto) [place] % (Auto) Eos % (Auto) Baso % (Auto) Lymph # (Auto) [place] # (Auto) Eos # (Auto) Baso # (Auto) Abs Immat Gran (auto) Absolute Neuts (auto) Absolute Nucleated RBC Nucleated RBC % Sodium Potassium Chloride Carbon Dioxide Anion Gap BUN Creatinine Estim Creat Clear Calc Estimated GFR Glu
--- NOTE | 2020-04-03 07:32 | PM.PNORT ---
Progress Note: A&P Assessment and Plan (1) Closed hip fracture: Qualifiers: Encounter type: subsequent encounter Fracture healing: with routine healing Laterality: left Qualified Code(s): S72.002D - Fracture of unspecified part of neck of left femur, subsequent encounter for closed fracture with routine healing Code(s): S72.009A - Fracture of unspecified part of neck of unspecified femur, initial encounter for closed fracture Status: Acute Assessment and Plan: 79-year-old female postop day one pinning in situ left femoral neck fracture. Overall doing well. Therapy will begin today. She is going to need placement. She may possibly be a candidate for the acute rehab before being able to go home with health nursing and PT since she lives in [place]. I will continue to follow her while she is in the hospital. Subjective Subjective Date/Time Seen: 04/03/20 07:32 Post Op day: 1 Principal diagnosis: status post pinning in situ left femoral neck fracture Interval history: 79-year-old female who is postop day one pinning left femoral neck fracture. As expected, she still has some achiness in her left thigh and hip area. Otherwise uneventful overnight. Exam Const: General: cooperative, no acute distress and alert Nutritional Appearance: other Orientation/consciousness: patient oriented x3 Limitations: no limitations HENMT: Head: normal to inspection Ears: hearing grossly normal bilaterally Face and sinus: face symmetric Mouth: Yes moist mucous membranes Teeth and gingiva: fair dentition Eyes: Alignment and Position: alignment normal and position normal Sclera: sclerae normal Neck: Neck: normal visual inspection and nontender Chest: Chest palpation & inspection: normal inspection of the chest Resp: Effort & Inspection: normal respiratory effort and able to speak in complete sentences GI: Inspection: other ( Nondistended) Skin: General skin exam: normal color Rashes: no rashes Neuro: General: patient oriented x3 Cognition (Neuro): normal cognition Speech: normal speech Gait exam (Neuro): Other gait observations present Motor exam (neuro): Other motor observations present ( neurovascular status grossly intact left lower extremity) Sensory Exam: normal sensation Extrem: General: normal to inspection and other Other: Exam of the left hip wound does show some serosanguineous drainage but no erythema and very little swelling. Calves nontender. Psych: Appearance: grossly normal Mental Status: mental status grossly normal Objective Data Vital Signs Vital Signs: Vital Signs - 24 hr 04/02/20 10:35 04/02/20 10:50 04/02/20 11:00 Temperature 98.2 F Pulse Rate 100 99 98 Respiratory Rate 22 H 12 12 Blood Pressure 194/71 H 191/59 H 197/56 H Pulse Oximetry 100 100 100 04/02/20 11:03 04/02/20 11:15 04/02/20 11:30 Temperature Pulse Rate 98 88 90 Respiratory Rate 12 12 Blood Pressure 158/47 H 154/48 H Pulse Oximetry 99 99 04/02/20 11:40 04/02/20 11:55 04/02/20 12:10 Temperature 100.0 F H 100.5 F H Pulse Rate 90 92 87 Respiratory Rate 12 20 20 Blood Pressure 156/45 H 154/47 H 147/46 H Pulse Oximetry 100 100 100 04/02/20 12:25 04/02/20 12:55 04/02/20 14:00 Temperature 98.5 F 99.2 F 100.0 F H Pulse Rate 87 85 91 Respiratory Rate 20 20 18 Blood Pressure 139/47 L 144/47 H 138/48 L Pulse Oximetry 100 100 100 04/02/20 18:00 04/02/20 22:00 04/03/20 02:00 Temperature 98.6 F 98.5 F 98.1 F Pulse Rate 85 92 100 Respiratory Rate 18 22 H 20 Blood Pressure 149/47 H 184/56 H 169/50 H Pulse Oximetry 94 92 92 04/03/20 06:00 Temperature 98.1 F Pulse Rate 97 Respiratory Rate 18 Blood Pressure 151/51 H Pulse Oximetry 92 Intake/Output Intake/Output: Intake & Output 03/31/20 04/01/20 04/02/20 04/03/20 23:59 23:59 23:59 23:59 Intake Total 2524 / 2524 750 / 750 Output Total 100 / 100 290 / 290 100 / 100 Balance -100 / -100 2234 / 2234 650 / 650 Me
[2020-04-03 08:05] LABS: Glucose Point of Care 218 (65-105)
[2020-04-03] MEDS: ASPIRIN 325 MG ENTERIC TABLET PO ×2 (08:27→22:09)
--- NOTE | 2020-04-03 08:49 | WPDANESPN ---
Anes - Prog Note Post-Op Date/Time: 04/03/20 08:49 Cardiovascular status: normal Respiratory status: normal Airway patency: baseline Mental status: baseline Post-Op hydration status: normal Vital Signs: Last Vital Signs Temp 36.7 C 04/03/20 06:00 Pulse 97 04/03/20 06:00 Resp 18 04/03/20 06:00 BP 151/51 H 04/03/20 06:00 Pulse Ox 92 04/03/20 06:00 Pain Score (VAS): 4 I/O: Intake & Output 04/02/20 04/03/20 04/03/20 23:59 07:59 15:59 Intake Total 1020 750 Output Total 250 100 Balance 770 650 Laboratory Tests 04/03/20 05:53 04/03/20 05:53 04/02/20 04/02/20 04/02/20 05:00 10:46 11:59 WBC RBC Hgb Hct MCV MCH MCHC RDW Plt Count MPV Immature Gran % (Auto) Neut % (Auto) Lymph % (Auto) [place] % (Auto) Eos % (Auto) Baso % (Auto) Lymph # (Auto) [place] # (Auto) Eos # (Auto) Baso # (Auto) Abs Immat Gran (auto) Absolute Neuts (auto) Absolute Nucleated RBC Nucleated RBC % Sodium Potassium Chloride Carbon Dioxide Anion Gap BUN Creatinine Estim Creat Clear Calc Estimated GFR Glucose POC Capillary Glucose 140 H 170 H Calcium Iron 110 TIBC 354 % Saturation 31 Ferritin 19.90 04/02/20 04/02/20 04/03/20 17:10 20:14 05:53 WBC 5.3 RBC 3.09 L Hgb 9.1 L Hct 28.3 L MCV 91.6 MCH 29.4 MCHC 32.2 RDW 14.6 H Plt Count 74 L MPV 12.2 H Immature Gran % (Auto) 0.4 Neut % (Auto) 64.1 Lymph % (Auto) 22.4 [place] % (Auto) 9.5 H Eos % (Auto) 3.4 Baso % (Auto) 0.2 Lymph # (Auto) 1.18 [place] # (Auto) 0.5 Eos # (Auto) 0.2 Baso # (Auto) 0.0 Abs Immat Gran (auto) 0.02 Absolute Neuts (auto) 3.4 Absolute Nucleated RBC 0.0 Nucleated RBC % 0.0 Sodium Potassium Chloride Carbon Dioxide Anion Gap BUN Creatinine Estim Creat Clear Calc Estimated GFR Glucose POC Capillary Glucose 228 H 284 H Calcium Iron TIBC % Saturation Ferritin 04/03/20 04/03/20 05:53 07:42 WBC RBC Hgb Hct MCV MCH MCHC RDW Plt Count MPV Immature Gran % (Auto) Neut % (Auto) Lymph % (Auto) [place] % (Auto) Eos % (Auto) Baso % (Auto) Lymph # (Auto) [place] # (Auto) Eos # (Auto) Baso # (Auto) Abs Immat Gran (auto) Absolute Neuts (auto) Absolute Nucleated RBC Nucleated RBC % Sodium 135 L Potassium 3.9 Chloride 109 H Carbon Dioxide 24 Anion Gap 2 L BUN 28 H Creatinine 1.50 H Estim Creat Clear Calc 22 Estimated GFR 34 L Glucose 234 H POC Capillary Glucose 218 H Calcium 7.8 L Iron TIBC % Saturation Ferritin Post-procedural complaints: none Patient Feedback: Patient satisfied with anesthetic care.
[2020-04-03] MEDS: INSULIN ASPART (*BKC) 100 UNITS/ML SUB-Q ×3 (09:14→17:21)
[2020-04-03] MEDS: INSULIN GLARGINE (*BKC) 100 UNITS/ML 10 UNITS SUB-Q (09:15)
[2020-04-03 10:00] VITALS: BP 146/38; PULSE 83; RESP 16; TEMP 36.5; O2SAT 95
[2020-04-03 12:05] LABS: Glucose Point of Care 204 (65-105)
--- NOTE | 2020-04-03 13:05 | P.PNIM_ITS ---
Progress Note: A&P Assessment and Plan (1) Closed hip fracture: Qualifiers: Encounter type: subsequent encounter Fracture healing: with routine healing Laterality: left Qualified Code(s): S72.002D - Fracture of unspecified part of neck of left femur, subsequent encounter for closed fracture with routine healing Code(s): S72.009A - Fracture of unspecified part of neck of unspecified femur, initial encounter for closed fracture Status: Acute Assessment and Plan: * Doing well POD 1 * D/w pt and spouse need for outpatient evaluation and treatment of osteoporosis (2) Pulmonary fibrosis: Code(s): J84.10 - Pulmonary fibrosis, unspecified Status: Inactive Assessment and Plan: * by history she has been doing well for several years * her lack of progression renders the diagnosis dubious * monitor per postoperatively for respiratory issues and encourage incentive spirometry and early mobilization of possible (3) Hypertension: Qualifiers: Hypertension type: essential hypertension Qualified Code(s): I10 - Essential (primary) hypertension Code(s): I10 - Essential (primary) hypertension Status: Acute Assessment and Plan: * 04/03 BP 146/38, holding amlodipine and furosmide (4) Diabetes mellitus: Qualifiers: Diabetes mellitus type: type 2 Diabetes mellitus continuous churn buttermaker insulin use: with continuous churn buttermaker use Diabetes mellitus complication status: with kidney complications Diabetes mellitus complication detail: with chronic kidney disease Chronic kidney disease stage: stage 3 (moderate) Chronic kidney disease stage 3 subtype: stage 3a (GFR 45-59) Qualified Code(s): E11.21 - Type 2 diabetes mellitus with diabetic nephropathy; N18.31 - Chronic kidney disease, stage 3a; Z79.4 - group home (current) use of insulin Code(s): E11.9 - Type 2 diabetes mellitus without complications Status: Acute Assessment and Plan: * 04/03 continue to hold metformin as creatinine is 1.5 (home dose is 850mg tid wm) * Continue SSI * 04/03 resume glargine 10 U q AM (5) Anemia due to acute blood loss: Code(s): D62 - Acute posthemorrhagic anemia Status: Acute Assessment and Plan: * due to acute left hip fracture * monitor hemoglobin hematocrit postoperatively (6) Thrombocytopenia: Code(s): D69.6 - Thrombocytopenia, unspecified Status: Acute Assessment and Plan: * 86k at admission, 04/02 99, 04/03 74k * Baseline platelet count unknown * Continue to monitor (7) MARY (acute kidney injury): Code(s): N17.9 - Acute kidney failure, unspecified Status: Acute Assessment and Plan: * Baseline creatinine 1.1 at admission, 1.1 04/02, 1.5 04/03 * Encourage PO intact, hold antihypertensives, avoid nephrotoxics drugs * F/u lab Subjective Date/time seen: 04/03/20 13:05 Interval history: 04/03: POD 1 s/p ORIF left hip fx 04/02. Tolerated diet. Pain left hip with movement. Denied cp/sob. Denied gi/gu issues. No BM yet post op. Denied weakness or numbness. Review of Systems Review of Systems: All systems reviewed & are unremarkable except as noted in HPI and below Exam Narrative: Exam Narrative: HEENT: EOMI, PERRL, sclerae nonicteric, pharyngeal mucosa pink and intact NECK: No JVD, adenopathy, or thyromegaly CHEST: Bilateral lower lobe fine crackles. Normal effort. HEART: NL S1/S2, regular, no murmur ABDOMEN: BS+, soft, nontender, no mass, no bruits EXTREMITIES: No cyanosis, edema, or clubbing NE
--- NOTE | 2020-04-03 13:05 | PM.IMPN ---
Progress Note: A&P Assessment and Plan (1) Closed hip fracture: Qualifiers: Encounter type: subsequent encounter Fracture healing: with routine healing Laterality: left Qualified Code(s): S72.002D - Fracture of unspecified part of neck of left femur, subsequent encounter for closed fracture with routine healing Code(s): S72.009A - Fracture of unspecified part of neck of unspecified femur, initial encounter for closed fracture Status: Acute Assessment and Plan: Doing well POD 1 D/w pt and spouse need for outpatient evaluation and treatment of osteoporosis (2) Pulmonary fibrosis: Code(s): J84.10 - Pulmonary fibrosis, unspecified Status: Inactive Assessment and Plan: by history she has been doing well for several years her lack of progression renders the diagnosis dubious monitor per postoperatively for respiratory issues and encourage incentive spirometry and early mobilization of possible (3) Hypertension: Qualifiers: Hypertension type: essential hypertension Qualified Code(s): I10 - Essential (primary) hypertension Code(s): I10 - Essential (primary) hypertension Status: Acute Assessment and Plan: 04/03 BP 146/38, holding amlodipine and furosmide (4) Diabetes mellitus: Qualifiers: Diabetes mellitus type: type 2 Diabetes mellitus termite exterminator insulin use: with termite exterminator use Diabetes mellitus complication status: with kidney complications Diabetes mellitus complication detail: with chronic kidney disease Chronic kidney disease stage: stage 3 (moderate) Chronic kidney disease stage 3 subtype: stage 3a (GFR 45-59) Qualified Code(s): E11.21 - Type 2 diabetes mellitus with diabetic nephropathy; N18.31 - Chronic kidney disease, stage 3a; Z79.4 - ferry terminal supervisor (current) use of insulin Code(s): E11.9 - Type 2 diabetes mellitus without complications Status: Acute Assessment and Plan: 04/03 continue to hold metformin as creatinine is 1.5 (home dose is 850mg tid wm) Continue SSI 04/03 resume glargine 10 U q AM (5) Anemia due to acute blood loss: Code(s): D62 - Acute posthemorrhagic anemia Status: Acute Assessment and Plan: due to acute left hip fracture monitor hemoglobin hematocrit postoperatively (6) Thrombocytopenia: Code(s): D69.6 - Thrombocytopenia, unspecified Status: Acute Assessment and Plan: 86k at admission, 04/02 99, 04/03 74k Baseline platelet count unknown Continue to monitor (7) MARY (acute kidney injury): Code(s): N17.9 - Acute kidney failure, unspecified Status: Acute Assessment and Plan: Baseline creatinine 1.1 at admission, 1.1 04/02, 1.5 04/03 Encourage PO intact, hold antihypertensives, avoid nephrotoxics drugs F/u lab Subjective Date/time seen: 04/03/20 13:05 Interval history: 04/03: POD 1 s/p ORIF left hip fx 04/02. Tolerated diet. Pain left hip with movement. Denied cp/sob. Denied gi/gu issues. No BM yet post op. Denied weakness or numbness. Review of Systems Review of Systems: All systems reviewed & are unremarkable except as noted in HPI and below Exam Narrative: Exam Narrative: HEENT: EOMI, PERRL, sclerae nonicteric, pharyngeal mucosa pink and intact NECK: No JVD, adenopathy, or thyromegaly CHEST: Bilateral lower lobe fine crackles. Normal effort. HEART: NL S1/S2, regular, no murmur ABDOMEN: BS+, soft, nontender, no mass, no bruits EXTREMITIES: No cyanosis, edema, or clubbing NEUROLOGIC: CN intact and symmetric to inspection. MUSCULOSKELETAL: Tone and strength symmetric to dorsiflexion plantar flexion and broach operator PSYCH: Alert. Oriented to person, place, and time. Objective Data Vital Signs Vital Signs: Vital Signs - 24 hr 04/02/20 14:00 04/02/20 18:00 04/02/20 22:00 Temperature 100.0 F H 98.6 F 98.5 F Pulse Rate 91 85 92 Respiratory Rate 18 18 22 H Blood Pressure 138/48 L 149/47 H 184/5
[2020-04-03 14:00] VITALS: BP 153/43; PULSE 82; RESP 18; TEMP 36.2; O2SAT 96
[2020-04-03 15:50] LABS: Add Urine Microscopic? YES; Appearance Urine Cloudy (Clear); Bacteria Urine Trace /hpf; Bilirubin Urine Negative (Negative); Blood Urine 1+ (Negative); Color Urine Yellow (Yellow); Glucose Urine UA 2+ mg/dL (Negative); Hyaline Casts Urine 15-19 /lpf; Ketones Urine Negative (Negative); Leukocyte Esterase Ur Negative LEU/UL (Negative); Mucus Urine Rare /lpf; Nitrate Urine Negative (Negative); Protein Urine 2+ mg/dL (Negative); Specific Grav Ur 1.015 (1.001-1.035); Squamous Epithelial Cell Urine Many /hpf (Few); Urobilinogen Urine Negative mg/dL (<2.0)
[2020-04-03 17:34] LABS: Glucose Point of Care 283 (65-105)
[2020-04-03 18:00] VITALS: BP 178/56; PULSE 86; RESP 20; TEMP 36.6; O2SAT 98
[2020-04-03 21:46] VITALS: BP 185/50; PULSE 88; RESP 18; TEMP 36.8; O2SAT 96
[2020-04-03 23:17] LABS: Glucose Point of Care 300 (65-105)
[2020-04-04 02:00] VITALS: BP 184/54; PULSE 100; RESP 18; TEMP 37.2; O2SAT 95
[2020-04-04] MEDS: oxyCODONE HCL (*CRX) 2.5 MG TAB IR PO ×2 (02:37→12:12)
[2020-04-04] MEDS: ACETAMINOPHEN 500 MG TABLET 1000 MG BY MOUTH ×3 (05:45→21:02)
[2020-04-04 05:48] LABS: Basophils Percent Auto 0.2 % (0.2-1.2); Eosinophils Absolute Auto 0.2 K/mm3 (0-0.3); Eosinophils Percent Auto 3.7 % (0-4.4); Hematocrit 29.5 % (37.0-47.0); Hemoglobin 9.5 g/dL (12.0-15.0); Immature Granulocyte Absolute 0.02 K/mm3 (0.00-0.031); Immature Granulocyte Percent A 0.4 % (0-0.5); Lymphocytes Absolute Auto 0.74 K/mm3 (0.9-3.2); Lymphocytes Percent Auto 14.5 % (18.3-44.2); Mean Corpuscular HGB Conc 32.2 g/dl (32-36); Mean Corpuscular Hemoglobin 29.2 pg (26-34); Mean Corpuscular Volume 90.8 fl (80-100); Mean Platelet Volume 12.2 fl (7.4-10.4); Monocytes Absolute Auto 0.4 K/mm3 (0.1-0.6); Monocytes Percent Auto 7.6 % (2.6-8.5); Neutrophils Absolute Auto 3.8 K/mm3 (1.3-6.7); Neutrophils Percent Auto 73.6 % (45.5-73.1); Platelet Count Result 80 k/mm3 (150-375); Red Blood Count 3.25 M/mm3 (4.2-5.4); Red Cell Distribution Width 14.4 % (11.5-14.5); White Blood Count 5.1 K/mm3 (4.5-10.0)
[2020-04-04 05:55] VITALS: BP 172/55; PULSE 93; RESP 16; TEMP 36.7; O2SAT 95
[2020-04-04 05:56] LABS: Anion Gap 3 mmol/L (8-16); Blood Urea Nitrogen 28 mg/dL (7-17); Carbon Dioxide 23 mmol/L (22-30); Chloride 108 mmol/L (98-107); Estimated CRCL calculation 26 ml/min; Estimated Glomerular Filt Rate 40; Glucose 248 mg/dL (65-105); Potassium 4.2 mmol/L (3.4-5.0); Sodium 134 mmol/L (137-145)
[2020-04-04] MEDS: INSULIN GLARGINE (*BKC) 100 UNITS/ML 10 UNITS SUB-Q (08:08)
[2020-04-04] MEDS: INSULIN ASPART (*BKC) 100 UNITS/ML SUB-Q ×3 (08:08→16:50)
[2020-04-04 08:48] LABS: Glucose Point of Care 204 (65-105)
[2020-04-04] MEDS: ASPIRIN 325 MG ENTERIC TABLET PO ×2 (09:17→21:01)
[2020-04-04 10:00] VITALS: BP 164/50; PULSE 83; RESP 16; TEMP 36.3; O2SAT 97
[2020-04-04] MEDS: ONDANSETRON HCL ODT 4 MG TABLET PO (10:40)
[2020-04-04] MEDS: polyethylene glycoL 3350 17 GM POWD.PACK PO (10:41)
[2020-04-04] MEDS: DOCUSATE SODIUM 100 MG CAPSULE PO ×2 (12:31→21:01)
[2020-04-04] MEDS: amLODIPine BESYLATE 2.5 MG TABLET PO (12:31)
[2020-04-04] MEDS: MECLIZINE HCL 25 MG TABLET PO (12:31)
[2020-04-04] MEDS: BACITRACIN OP OINT 3.5 GM TUBE 1 APPLIC EACH EYE ×2 (12:32→16:52)
[2020-04-04 14:08] LABS: SARS-CoV-2 RNA PCR Negative
[2020-04-04 15:34] LABS: Glucose Point of Care 265 (65-105)
--- NOTE | 2020-04-04 15:39 | PM.IMPN ---
Progress Note: A&P Assessment and Plan (1) Closed hip fracture: Qualifiers: Encounter type: subsequent encounter Fracture healing: with routine healing Laterality: left Qualified Code(s): S72.002D - Fracture of unspecified part of neck of left femur, subsequent encounter for closed fracture with routine healing Code(s): S72.009A - Fracture of unspecified part of neck of unspecified femur, initial encounter for closed fracture Status: Acute Assessment and Plan: Doing well POD 2 D/w pt and spouse need for outpatient evaluation and treatment of osteoporosis 04/04/20 15:39 Patient is 79-year-old female with history of diabetes hypertension and idiopathic pulmonary fibrosis for which patient is on and off on steroid, patient was doing home improvement and tripped and fell and had a left hip fracture, there was no associated symptoms dizziness palpate or chest pain prior to fall most likely patient had a mechanical fall, was brought emergency department and was seen by orthopedic surgeon and had status post ORIF on 04/02, today patient is feeling better able to participate minimally with physical therapy, her main concern is constipation has not had a BM in few days, passing gas, denies any abdominal pain nausea or vomiting, will give patient Colace and MiraLax, encourage the patient to ambulate with physical therapy, patient is present in the room, patient be seen by her surgeon and further recommendation to follow (2) Pulmonary fibrosis: Code(s): J84.10 - Pulmonary fibrosis, unspecified Status: Inactive Assessment and Plan: by history she has been doing well for several years her lack of progression renders the diagnosis dubious monitor per postoperatively for respiratory issues and encourage incentive spirometry and early mobilization of possible (3) Hypertension: Qualifiers: Hypertension type: essential hypertension Qualified Code(s): I10 - Essential (primary) hypertension Code(s): I10 - Essential (primary) hypertension Status: Acute Assessment and Plan: 04/03 BP 146/38, holding amlodipine and furosmide (4) Diabetes mellitus: Qualifiers: Diabetes mellitus type: type 2 Diabetes mellitus superintendent nonselling insulin use: with fdc use Diabetes mellitus complication status: with kidney complications Diabetes mellitus complication detail: with chronic kidney disease Chronic kidney disease stage: stage 3 (moderate) Chronic kidney disease stage 3 subtype: stage 3a (GFR 45-59) Qualified Code(s): E11.21 - Type 2 diabetes mellitus with diabetic nephropathy; N18.31 - Chronic kidney disease, stage 3a; Z79.4 - jail (current) use of insulin Code(s): E11.9 - Type 2 diabetes mellitus without complications Status: Acute Assessment and Plan: 04/03 continue to hold metformin as creatinine is 1.5 (home dose is 850mg tid wm) Continue SSI 04/03 resume glargine 10 U q AM (5) Anemia due to acute blood loss: Code(s): D62 - Acute posthemorrhagic anemia Status: Acute Assessment and Plan: due to acute left hip fracture monitor hemoglobin hematocrit postoperatively (6) Thrombocytopenia: Code(s): D69.6 - Thrombocytopenia, unspecified Status: Acute Assessment and Plan: 86k at admission, 04/02 99, 04/03 74k, 04/04 80. Baseline platelet count unknown Continue to monitor (7) MARY (acute kidney injury): Code(s): N17.9 - Acute kidney failure, unspecified Status: Acute Assessment and Plan: Baseline creatinine 1.1 at admission, 1.1 04/02, 1.5 04/03, 1.3 04/04 Encourage PO intact, hold antihypertensives, avoid nephrotoxics drugs F/u lab Subjective Date/time seen: 04/04/20 15:39 Patient is 79-year-old female with history of diabetes hypertension and idiopathic pulmonary fibrosis for which patient is on and off on steroid, patient was doing home improvemen
[2020-04-04 16:45] LABS: Glucose Point of Care 295 (65-105)
[2020-04-04] MEDS: GABAPENTIN 300 MG CAPSULE PO (16:52)
[2020-04-04 18:00] VITALS: BP 177/47; PULSE 91; RESP 16; TEMP 37; O2SAT 99
[2020-04-04] MEDS: ATORVASTATIN 10 MG TABLET PO (21:01)
[2020-04-04] MEDS: INSULIN DETEMIR 100 UNITS/ML 10 UNITS SUB-Q (21:02)
[2020-04-04 21:09] LABS: Glucose Point of Care 336 (65-105)
[2020-04-04 22:00] VITALS: BP 157/59; PULSE 88; RESP 21; TEMP 37.1; O2SAT 100
[2020-04-05 02:00] VITALS: BP 161/65; PULSE 86; RESP 20; TEMP 36.8; O2SAT 98
[2020-04-05] MEDS: oxyCODONE HCL (*CRX) 2.5 MG TAB IR PO (02:53)
[2020-04-05 06:00] VITALS: BP 152/45; PULSE 82; RESP 20; TEMP 36.8; O2SAT 98
[2020-04-05] MEDS: ACETAMINOPHEN 500 MG TABLET 1000 MG BY MOUTH (06:16)
--- NOTE | 2020-04-05 07:40 | PM.PNORT ---
Progress Note: A&P Assessment and Plan (1) Closed hip fracture: Qualifiers: Encounter type: subsequent encounter Fracture healing: with routine healing Laterality: left Qualified Code(s): S72.002D - Fracture of unspecified part of neck of left femur, subsequent encounter for closed fracture with routine healing Code(s): S72.009A - Fracture of unspecified part of neck of unspecified femur, initial encounter for closed fracture Status: Acute Assessment and Plan: 79-year-old female postop day three left hip pinning. She is going to be transferred to rehab facility today. Instructions will be sent along. I will need to see her in two months. No change in her activity level with respect to weight-bearing left lower extremity for the next eight weeks. Time Spent With Patient Time with patient: 15 - 25 minutes Subjective Subjective Date/Time Seen: 04/05/20 07:40 Post Op day: 3 ( left hip pinning ) Interval history: 79-year-old female postop date three left hip pinning and doing very well. Pain well controlled on Tylenol. Review of Systems Constitutional: Constitutional: Denies chills and Denies fever(s) Eyes: Eyes: Reports no additional eye complaints ENT: Reports system reviewed and no additional complaints, except as documented Cardiovascular: Cardiovascular: Denies chest pain Respiratory: Respiratory: Reports no additional respiratory complaints Gastrointestinal: Gastrointestinal: Denies abdominal pain Exam Const: General: cooperative, no acute distress and alert Nutritional Appearance: other Orientation/consciousness: patient oriented x3 Limitations: no limitations Resp: Effort & Inspection: normal respiratory effort and able to speak in complete sentences GI: Inspection: other ( Nondistended) Skin: General skin exam: normal color Rashes: no rashes Neuro: General: patient oriented x3 Cognition (Neuro): normal cognition Speech: normal speech Gait exam (Neuro): Other gait observations present Sensory Exam: normal sensation Extrem: General: normal to inspection and other Other: Exam of the left hip wound shows very little swelling, no erythema, no drainage. Neurovascular unremarkable left lower extremity. Calves negative. Psych: Appearance: grossly normal Mental Status: mental status grossly normal Objective Data Vital Signs Vital Signs: Vital Signs - 24 hr 04/04/20 10:00 04/04/20 18:00 04/04/20 22:00 Temperature 97.3 F L 98.6 F 98.7 F Pulse Rate 83 91 88 Respiratory Rate 16 16 21 H Blood Pressure 164/50 H 177/47 H 157/59 H Pulse Oximetry 97 99 100 04/05/20 02:00 04/05/20 06:00 Temperature 98.2 F 98.3 F Pulse Rate 86 82 Respiratory Rate 20 20 Blood Pressure 161/65 H 152/45 H Pulse Oximetry 98 98 Intake/Output Intake/Output: Intake & Output 04/02/20 04/03/20 04/04/20 04/05/20 23:59 23:59 23:59 23:59 Intake Total 2524 / 2524 1530 / 1530 970 / 970 350 / 350 Output Total 290 / 290 350 / 350 1300 / 1300 500 / 500 Balance 2234 / 2234 1180 / 1180 -330 / -330 -150 / -150 Meds/Results Medications: Active Medications Generic Name Dose Route Start Last Admin Trade Name Freq PRN Reason Stop Dose Admin Acetaminophen 1,000 mg 04/02/20 14:00 04/05/20 06:16 Acetaminophen 500 Mg Tablet BY MOUTH 1,000 mg Q8HR BEATA Administration Al Hydrox/Mg Hydrox/Simethicone 30 ml 04/02/20 11:41 Mag Hydrox/Al Hydrox/Simeth 30 Ml Udc PO Q6H PRN Indigestion Amlodipine Besylate 2.5 mg 04/04/20 10:35 04/04/20 12:31 Amlodipine Besylate 2.5 Mg Tablet PO 2.5 mg QAM BEATA Administration Aspirin 325 mg 04/02/20 21:00 04/04/20 21:01 Aspirin 325 Mg Enteric Tablet PO 325 mg Q12HR BEATA Administration Atorvastatin Calcium 10 mg 04/04/20 21:00 04/04/20 21:01 Atorvastatin 10 Mg Tablet PO 10 mg HS BEATA Administration Bacitracin 1 applic 04/04/20 13:00 04/04/20 16:52 Bacitracin Op Oint 3.5 Gm Tube EACH EYE 1 applic
[2020-04-05 07:47] LABS: Glucose Point of Care 162 (65-105)
[2020-04-05] MEDS: BACITRACIN OP OINT 3.5 GM TUBE 1 APPLIC EACH EYE (08:59)
[2020-04-05] MEDS: DOCUSATE SODIUM 100 MG CAPSULE PO (08:59)
[2020-04-05] MEDS: ASPIRIN 325 MG ENTERIC TABLET PO (08:59)
[2020-04-05] MEDS: amLODIPine BESYLATE 2.5 MG TABLET PO (08:59)
[2020-04-05] MEDS: MECLIZINE HCL 25 MG TABLET PO (09:00)
[2020-04-05] MEDS: GABAPENTIN 300 MG CAPSULE PO (09:00)
[2020-04-05] MEDS: INSULIN GLARGINE (*BKC) 100 UNITS/ML 10 UNITS SUB-Q (09:02)
[2020-04-05 10:00] VITALS: BP 169/44; PULSE 80; RESP 14; TEMP 36.3; O2SAT 100
--- NOTE | 2020-04-05 10:04 | PM.DS ---
DS: Admitting Diagnosis Admitting Diagnosis Admitting Diagnosis: left hip fracture DS: Discharge Diagnosis Discharge Diagnosis (1) Closed hip fracture: Qualifiers: Encounter type: subsequent encounter Fracture healing: with routine healing Laterality: left Qualified Code(s): S72.002D - Fracture of unspecified part of neck of left femur, subsequent encounter for closed fracture with routine healing Code(s): S72.009A - Fracture of unspecified part of neck of unspecified femur, initial encounter for closed fracture Status: Acute Assessment and Plan: Doing well POD 2 D/w pt and spouse need for outpatient evaluation and treatment of osteoporosis 04/04/20 15:39 Patient is 79-year-old female with history of diabetes hypertension and idiopathic pulmonary fibrosis for which patient is on and off on steroid, patient was doing home improvement and tripped and fell and had a left hip fracture, there was no associated symptoms dizziness palpate or chest pain prior to fall most likely patient had a mechanical fall, was brought emergency department and was seen by orthopedic surgeon and had status post ORIF on 04/02, today patient is feeling better able to participate minimally with physical therapy, her main concern is constipation has not had a BM in few days, passing gas, denies any abdominal pain nausea or vomiting, will give patient Colace and MiraLax, encourage the patient to ambulate with physical therapy, patient is present in the room, patient be seen by her surgeon and further recommendation to follow (2) Pulmonary fibrosis: Code(s): J84.10 - Pulmonary fibrosis, unspecified Status: Inactive Assessment and Plan: by history she has been doing well for several years her lack of progression renders the diagnosis dubious monitor per postoperatively for respiratory issues and encourage incentive spirometry and early mobilization of possible (3) Hypertension: Qualifiers: Hypertension type: essential hypertension Qualified Code(s): I10 - Essential (primary) hypertension Code(s): I10 - Essential (primary) hypertension Status: Acute Assessment and Plan: 04/03 BP 146/38, holding amlodipine and furosmide (4) Diabetes mellitus: Qualifiers: Diabetes mellitus type: type 2 Diabetes mellitus detention insulin use: with manager long term care use Diabetes mellitus complication status: with kidney complications Diabetes mellitus complication detail: with chronic kidney disease Chronic kidney disease stage: stage 3 (moderate) Chronic kidney disease stage 3 subtype: stage 3a (GFR 45-59) Qualified Code(s): E11.21 - Type 2 diabetes mellitus with diabetic nephropathy; N18.31 - Chronic kidney disease, stage 3a; Z79.4 - [facility] (current) use of insulin Code(s): E11.9 - Type 2 diabetes mellitus without complications Status: Acute Assessment and Plan: 04/03 continue to hold metformin as creatinine is 1.5 (home dose is 850mg tid wm) Continue SSI 04/03 resume glargine 10 U q AM (5) Anemia due to acute blood loss: Code(s): D62 - Acute posthemorrhagic anemia Status: Acute Assessment and Plan: due to acute left hip fracture monitor hemoglobin hematocrit postoperatively (6) Thrombocytopenia: Code(s): D69.6 - Thrombocytopenia, unspecified Status: Acute Assessment and Plan: 86k at admission, 04/02 99, 04/03 74k, 04/04 80. Baseline platelet count unknown Continue to monitor (7) MARY (acute kidney injury): Code(s): N17.9 - Acute kidney failure, unspecified Status: Acute Assessment and Plan: Baseline creatinine 1.1 at admission, 1.1 04/02, 1.5 04/03, 1.3 04/04 Encourage PO intact, hold antihypertensives, avoid nephrotoxics drugs F/u lab DS: Summary Hospital Course Reason for hospitalization: Chief complaint: left hip fracture Narrative: Gail Matute is a 79
[2020-04-05 11:48] LABS: Glucose Point of Care 199 (65-105)
== END 2020-04-05 13:23 | DRG 481 ==
LOC: ANHED 16:45 → ANH2MED 04-02 15:24
PROVIDERS: Family Medicine; Internal Medicine; Orthopaedic Surgery; Student in an Organized Health Care Education/Training Program; Admitting Provider Internal Medicine; Emergency Provider Family Medicine; Visit Provider Family Medicine
PROC: 0QH734Z Insertion of Internal Fixation Device into Left Upper Femur, Percutaneous Approach (ICD-10-PCS; principal; 2020-04-02 08:30)
DX: S72.012A Unspecified intracapsular fracture of left femur, initial encounter for closed fracture (principal); N17.9 Acute kidney failure, unspecified; D62 Acute posthemorrhagic anemia; Z20.828 Contact with and (suspected) exposure to other viral communicable diseases; I10 Essential (primary) hypertension; E78.5 Hyperlipidemia, unspecified; W18.39XA Other fall on same level, initial encounter; J44.9 Chronic obstructive pulmonary disease, unspecified; J84.112 Idiopathic pulmonary fibrosis; E11.21 Type 2 diabetes mellitus with diabetic nephropathy; E11.22 Type 2 diabetes mellitus with diabetic chronic kidney disease; I12.9 Hypertensive chronic kidney disease with stage 1 through stage 4 chronic kidney disease, or unspecified chronic kidney disease; N18.31 Chronic kidney disease, stage 3a; D64.9 Anemia, unspecified; J84.10 Pulmonary fibrosis, unspecified; D69.6 Thrombocytopenia, unspecified
CPT/HCPCS: 36415; 70450; 73502; 80048; 80053; 81001; 82728; 83540; 83550; 83735; 84466; 85025; 85610; 87086; 87635; 93005; 97110; 97161; 97166; 97530; 97535; 99285; A9270; C1713; C1769; C9803; J0360; J1170; J1815; J2405; J2704; J3010; J7030; J7120; U0003